=== PATIENT | female | born 1955 | race Caucasian/White ===

== ENCOUNTER → 2016-11-13 | Outpatient (CLI) | payer OTHER | END | disposition home or self-care (01) | LOC: LABWHC1 11:40 | PROVIDERS: ATTEND Internal Medicine | DX: Z53.9 Procedure and treatment not carried out, unspecified reason (principal) ==

== ENCOUNTER → 2016-11-14 | Outpatient (CLI) | payer OTHER ==
[2016-11-14 08:14] LABS: Basophils # (A) 0.1 k/uL (0-0.2); Basophils % (A) 2 %; CHCM 33.8; Eosinophils # (A) 0.2 k/uL (0-0.7); Eosinophils % (A) 4 %; HCT 42.1 % (34.0-46.0); HDW 2.44; HGB 14.3 gm/dL (11.4-16.0); Luc # (Auto) 0.14; Luc % (Auto) 3; Lymphocytes # (A) 2.2 k/uL (1.0-4.8); Lymphocytes % (A) 43 %; MCH 30.4 pg (25.0-35.0); MCV 89.3 fL (80.0-100.0); Mean Platelet Volume 7.6; Monocytes # (A) 0.3 k/uL (0-1.0); Monocytes % (A) 7 %; Neutrophils # (A) 2.1 k/uL (1.3-7.7); Neutrophils % (A) 42 %; RBC 4.71 m/uL (3.80-5.40); WBC 5.1 k/uL (3.8-10.6); WBC (Perox) 5.33
[2016-11-14 09:02] LABS: ALT 29 U/L (9-52); AST 26 U/L (14-36); Alkaline Phosphatase 65 U/L (38-126); Anion Gap 8 mmol/L; Blood Urea Nitrogen 11 mg/dL (7-17); Calcium 9.8 mg/dL (8.4-10.2); Carbon Dioxide 28 mmol/L (22-30); Chloride 105 mmol/L (98-107); Cholesterol 215 mg/dL (<200); Creatine Kinase 56 U/L (30-135); Glucose 95 mg/dL (74-99); HDL Cholesterol 96 mg/dL (40-60); Non-African American GFR(MDRD) 59 (>60 ml/min/1.73 sqM); Potassium 5.4 mmol/L (3.5-5.1); Sodium 141 mmol/L (137-145); Total Bilirubin 0.8 mg/dL (0.2-1.3); Triglycerides 76 mg/dL (<150)
[2016-11-14 09:48] LABS: Erythrocyte Sedimentation Rate 7 mm/hr (0-20)
[2016-11-14 10:39] LABS: C Reactive Protein <5.0 mg/L (<10.0)
== END | disposition home or self-care (01) ==
LOC: LABWHC1 07:50
PROVIDERS: ATTEND Internal Medicine
DX: E78.5 Hyperlipidemia, unspecified (principal); E55.9 Vitamin D deficiency, unspecified
CPT/HCPCS: 36415; 80053; 80061; 82306; 82550; 85025; 85652; 86140

== ENCOUNTER → 2016-11-28 | Outpatient (CLI) | payer OTHER | LOC: LABWHC1 08:18 | PROVIDERS: ATTEND Internal Medicine | DX: E87.5 Hyperkalemia (principal) | CPT/HCPCS: 36415; 84132 ==

== ENCOUNTER → 2017-11-30 | Outpatient (CLI) | payer OTHER ==
[2017-11-30 09:06] LABS: Basophils % (A) 1 %; Eosinophils # (A) 0.2 k/uL (0-0.7); Eosinophils % (A) 4 %; HCT 42.3 % (34.0-46.0); HGB 14.2 gm/dL (11.4-16.0); Lymphocytes # (A) 2.1 k/uL (1.0-4.8); Lymphocytes % (A) 44 %; MCH 29.5 pg (25.0-35.0); MCHC 33.6 g/dL (31.0-37.0); MCV 87.9 fL (80.0-100.0); Mean Platelet Volume 7.3; Monocytes # (A) 0.3 k/uL (0-1.0); Monocytes % (A) 7 %; Neutrophils % (A) 42 %; Platelet Count 254 k/uL (150-450); RBC 4.82 m/uL (3.80-5.40); WBC 4.8 k/uL (3.8-10.6)
[2017-11-30 09:07] LABS: ALT 20 U/L (9-52); AST 23 U/L (14-36); Albumin 4.1 g/dL (3.5-5.0); Alkaline Phosphatase 73 U/L (38-126); Anion Gap 8 mmol/L; Blood Urea Nitrogen 17 mg/dL (7-17); C Reactive Protein <5.0 mg/L (<10.0); Calcium 9.6 mg/dL (8.4-10.2); Carbon Dioxide 28 mmol/L (22-30); Chloride 105 mmol/L (98-107); Cholesterol 225 mg/dL (<200); Creatine Kinase 52 U/L (30-135); Glucose 97 mg/dL (74-99); HDL Cholesterol 93 mg/dL (40-60); LDL Cholesterol,Calculated 117 mg/dL (0-99); Magnesium 2.1 mg/dL (1.6-2.3); Sodium 141 mmol/L (137-145); Total Bilirubin 0.6 mg/dL (0.2-1.3); Total Protein 6.6 g/dL (6.3-8.2); Triglycerides 74 mg/dL (<150)
[2017-11-30 13:19] LABS: Erythrocyte Sedimentation Rate 8 mm/hr (0-20)
== END | disposition home or self-care (01) ==
LOC: LABWHC1 08:20
PROVIDERS: ATTEND Internal Medicine
DX: D64.9 Anemia, unspecified (principal); E87.8 Other disorders of electrolyte and fluid balance, not elsewhere classified; E78.5 Hyperlipidemia, unspecified; E55.9 Vitamin D deficiency, unspecified
CPT/HCPCS: 36415; 80053; 80061; 82306; 82550; 83735; 85025; 85652; 86140

== ENCOUNTER → 2018-06-07 | Outpatient (CLI) | payer OTHER ==
[2018-06-07 09:22] LABS: ALT 32 U/L (9-52); AST 33 U/L (14-36); C Reactive Protein <5.0 mg/L (<10.0); Cholesterol 218 mg/dL (<200); Creatine Kinase 55 U/L (30-135); HDL Cholesterol 95 mg/dL (40-60); LDL Cholesterol,Calculated 109 mg/dL (0-99); Triglycerides 71 mg/dL (<150)
== END | disposition home or self-care (01) ==
LOC: LABWHC1 08:29
PROVIDERS: ATTEND Internal Medicine
DX: E78.5 Hyperlipidemia, unspecified (principal)
CPT/HCPCS: 36415; 80061; 82550; 84450; 84460; 86140

== ENCOUNTER → 2018-12-01 | Outpatient (CLI) | payer MEDICARE, OTHER ==
[2018-12-01 10:04] LABS: Basophils % (A) 1 %; Eosinophils # (A) 0.2 k/uL (0-0.7); Eosinophils % (A) 4 %; HCT 42.1 % (34.0-46.0); HGB 13.3 gm/dL (11.4-16.0); Lymphocytes # (A) 1.6 k/uL (1.0-4.8); Lymphocytes % (A) 36 %; MCH 28.3 pg (25.0-35.0); MCHC 31.7 g/dL (31.0-37.0); MCV 89.4 fL (80.0-100.0); Mean Platelet Volume 7.3; Monocytes # (A) 0.3 k/uL (0-1.0); Monocytes % (A) 7 %; Neutrophils # (A) 2.2 k/uL (1.3-7.7); Neutrophils % (A) 50 %; Platelet Count 242 k/uL (150-450); RBC 4.71 m/uL (3.80-5.40); RDW 13.1 % (11.5-15.5); WBC 4.4 k/uL (3.8-10.6)
[2018-12-01 11:37] LABS: Erythrocyte Sedimentation Rate 7 mm/hr (0-20)
[2018-12-01 18:02] LABS: ALT 19 U/L (8-44); AST 28 U/L (13-35); Albumin/Globulin Ratio 2.39 (1.60-3.17); Alkaline Phosphatase 73 U/L (41-126); C Reactive Protein <0.4 mg/dL (0.0-0.8); Calcium 9.6 mg/dL (8.7-10.3); Chloride 106 mmol/L (96-109); Cholesterol 216 mg/dL (0-200); Creatine Kinase 66 U/L (26-186); Globulin 1.8 g/dL (1.6-3.3); Glucose 87 mg/dL (70-110); LDL Cholesterol,Calculated 105.8 mg/dL (0.0-131.0); Potassium 4.9 mmol/L (3.5-5.5); Sodium 140 mmol/L (135-145); Total Bilirubin 0.9 mg/dL (0.3-1.2); Total Protein 6.1 g/dL (6.2-8.2)
== END | disposition home or self-care (01) ==
LOC: LABWHC1 08:50
PROVIDERS: ATTEND Internal Medicine
DX: D64.9 Anemia, unspecified (principal); E78.5 Hyperlipidemia, unspecified; E55.9 Vitamin D deficiency, unspecified; M19.90 Unspecified osteoarthritis, unspecified site
CPT/HCPCS: 36415; 80053; 80061; 82550; 85025; 85652; 86140

== ENCOUNTER → 2019-02-14 | Outpatient (CLI) | payer MEDICARE, OTHER ==
--- NOTE | 2019-02-15 10:00 | MM ---
Reason for exam: screening (asymptomatic). Last mammogram was performed 15 years and 9 months ago. History: Patient is postmenopausal. Family history of breast cancer in sister at age 60. Physical Findings: A clinical breast exam by your physician is recommended on an annual basis and results should be correlated with mammographic findings. MG 3D Screening Mammo W/Cad Bilateral CC, MLO, and XCCL view(s) were taken. Prior study comparison: January 07, 2018, mammogram, performed at [facility]. December 08, 2016, mammogram, performed at [facility]. May 28, 2003, bilateral screening mammogram. The breast tissue is heterogeneously dense. This may lower the sensitivity of mammography. There is no discrete abnormality. No significant changes when compared with prior studies. ASSESSMENT: Negative, BI-RAD 1 RECOMMENDATION: Routine screening mammogram of both breasts in 1 year.
== END ==
LOC: RADMAMWWP 16:53
PROVIDERS: ATTEND Internal Medicine
DX: Z12.31 Encounter for screening mammogram for malignant neoplasm of breast (principal)
CPT/HCPCS: 77063; 77067

== ENCOUNTER → 2019-06-13 | Outpatient (CLI) | payer MEDICARE, OTHER ==
[2019-06-13 08:56] LABS: Basophils % (A) 1 %; Eosinophils # (A) 0.2 k/uL (0-0.7); Eosinophils % (A) 3 %; HCT 41.5 % (34.0-46.0); Lymphocytes # (A) 1.7 k/uL (1.0-4.8); Lymphocytes % (A) 36 %; MCH 29.6 pg (25.0-35.0); MCHC 33.6 g/dL (31.0-37.0); MCV 88.1 fL (80.0-100.0); Mean Platelet Volume 7.5; Monocytes # (A) 0.3 k/uL (0-1.0); Monocytes % (A) 7 %; Neutrophils # (A) 2.3 k/uL (1.3-7.7); Neutrophils % (A) 51 %; Platelet Count 245 k/uL (150-450); RBC 4.71 m/uL (3.80-5.40); RDW 14.7 % (11.5-15.5); WBC 4.6 k/uL (3.8-10.6)
[2019-06-13 10:33] LABS: Erythrocyte Sedimentation Rate 7 mm/hr (0-20)
[2019-06-13 16:57] LABS: ALT 20 U/L (8-44); AST 24 U/L (13-35); African American GFR (CKD) 68.5 (60.0-200.0); Albumin/Globulin Ratio 2.59 (1.60-3.17); Alkaline Phosphatase 76 U/L (41-126); C Reactive Protein <0.4 mg/dL (0.0-0.8); Calcium 9.7 mg/dL (8.7-10.3); Carbon Dioxide 27.4 mmol/L (21.6-31.8); Chloride 104 mmol/L (96-109); Chol/HDL Ratio 2.19; Cholesterol 219 mg/dL (0-200); Creatine Kinase 67 U/L (26-186); Globulin 1.7 g/dL (1.6-3.3); Glucose 87 mg/dL (70-110); Potassium 5.5 mmol/L (3.5-5.5); Sodium 139 mmol/L (135-145); Total Bilirubin 0.7 mg/dL (0.3-1.2); Total Protein 6.1 g/dL (6.2-8.2)
== END | disposition home or self-care (01) ==
LOC: LABWHC1 07:53
PROVIDERS: ATTEND Internal Medicine
DX: E78.5 Hyperlipidemia, unspecified (principal); D64.9 Anemia, unspecified; M81.0 Age-related osteoporosis without current pathological fracture; J06.9 Acute upper respiratory infection, unspecified
CPT/HCPCS: 36415; 80053; 80061; 82550; 85025; 85652; 86140

== ENCOUNTER → 2020-01-23 | Outpatient (CLI) | payer MEDICARE, OTHER ==
[2020-01-23 08:49] LABS: Basophils # (A) 0.1 k/uL (0-0.2); Basophils % (A) 2 %; Eosinophils # (A) 0.1 k/uL (0-0.7); Eosinophils % (A) 3 %; HCT 42.5 % (34.0-46.0); HGB 14.3 gm/dL (11.4-16.0); Lymphocytes # (A) 1.7 k/uL (1.0-4.8); Lymphocytes % (A) 36 %; MCH 30.9 pg (25.0-35.0); MCHC 33.6 g/dL (31.0-37.0); MCV 92.1 fL (80.0-100.0); Mean Platelet Volume 7.7; Monocytes # (A) 0.3 k/uL (0-1.0); Monocytes % (A) 7 %; Neutrophils # (A) 2.4 k/uL (1.3-7.7); Neutrophils % (A) 50 %; Platelet Count 222 k/uL (150-450); RBC 4.61 m/uL (3.80-5.40); RDW 12.8 % (11.5-15.5); WBC 4.7 k/uL (3.8-10.6)
[2020-01-23 10:06] LABS: Erythrocyte Sedimentation Rate 7 mm/hr (0-20)
[2020-01-23 16:10] LABS: Albumin 4.3 g/dL (3.80-4.90); Albumin/Globulin Ratio 2.53 (1.60-3.17); Calcium 9.5 mg/dL (8.7-10.3); Chol/HDL Ratio 2.23; Globulin 1.7 g/dL (1.6-3.3); LDL Cholesterol,Calculated 110.6 mg/dL (0.0-131.0); Non-African American GFR(CKD) 58.7 (60.0-200.0); Potassium 4.3 mmol/L (3.5-5.5); Total Bilirubin 0.7 mg/dL (0.2-1.2); VLDL Calculation 12.4 mg/dL (5.00-40.00)
== END | disposition home or self-care (01) ==
LOC: LABWHC1 08:20
PROVIDERS: ATTEND Internal Medicine
DX: Z00.00 Encounter for general adult medical examination without abnormal findings (principal); E78.5 Hyperlipidemia, unspecified; D63.1 Anemia in chronic kidney disease; N18.3 Chronic kidney disease, stage 3 (moderate)
CPT/HCPCS: 36415; 80053; 80061; 85025; 85652

== ENCOUNTER → 2020-04-29 | Outpatient (CLI) | payer MEDICARE, OTHER ==
--- NOTE | 2020-04-29 09:33 | CT ---
EXAMINATION TYPE: CT brain w con DATE OF EXAM: 04/29/2020 COMPARISON: CT brain February 23, 2012. HISTORY: dizziness, loss of balance CT DLP: 742.7 mGycm Automated exposure control for dose reduction was used. CONTRAST: CT scan of the head is performed with IV Contrast, patient injected with 80 mL of Isovue 300. FINDINGS: There is no abnormal enhancing mass or midline shift identified. The ventricles and sulci are within normal limits in size for patient's age. Hansen-white matter fairly well maintained. Stable asymmetri c prominence of the draining right internal jugular vein. No new opacification of the mastoid air inga ls. The globes are intact and the visualized sinuses are clear. IMPRESSION: Source of dizziness and loss of balance not identified. No significant change from 2011 C T.
== END | disposition home or self-care (01) ==
LOC: RADCTMAIN 06:59
PROVIDERS: ATTEND Internal Medicine
DX: R26.9 Unspecified abnormalities of gait and mobility (principal); Z88.2 Allergy status to sulfonamides; Z88.8 Allergy status to other drugs, medicaments and biological substances
CPT/HCPCS: 82565; 84520; 70460; 36415; Q9967

== ENCOUNTER → 2020-06-20 | Outpatient (CLI) | payer MEDICARE, OTHER | END | disposition home or self-care (01) | LOC: RADMRIMAIN 10:29 | PROVIDERS: ATTEND Psychiatry & Neurology Neurology | DX: Z53.9 Procedure and treatment not carried out, unspecified reason (principal) ==

== ENCOUNTER → 2020-07-03 | Outpatient (CLI) | payer MEDICARE, OTHER ==
[2020-07-03 18:54] LABS: DNA Double-Stranded NEGATIVE (NEGATIVE)
[2020-07-03 19:36] LABS: African American GFR (CKD) 77.2 (60.0-200.0); Non-African American GFR(CKD) 66.6 (60.0-200.0); Rheumatoid Factor, Qnt 6 IU/mL (0-15)
[2020-07-03 19:38] LABS: Folate, Serum 17.4 ng/mL
== END | disposition home or self-care (01) ==
LOC: LABWHC1 07:42
PROVIDERS: ATTEND Psychiatry & Neurology Neurology
DX: R42 Dizziness and giddiness (principal)
CPT/HCPCS: 36415; 82565; 82607; 82746; 84520; 86038; 86225; 86431; 86618

== ENCOUNTER → 2020-07-08 | Outpatient (CLI) | payer MEDICARE, OTHER ==
--- NOTE | 2020-07-08 19:57 | MR ---
EXAMINATION TYPE: MR brain wo/w con DATE OF EXAM: 07/08/2020 COMPARISON: CT brain April 29, 2020 HISTORY: Dizziness, Loss of Balance, acoustic neuroma, tumor TECHNIQUE: Multiplanar, multisequence images of the brain and brainstem is performed without and with IV contras t, utilizing 5.5 mL intravenous Gadavist . Acoustic nerve disorder protocol.3 FINDINGS: Diffusion weighted images demonstrate no evidence of a recent infarct or other diffusion ab normality. There is no recent extra-axial fluid collection. Stable mild ventricular and sulcal promi nence. Scattered tiny foci of T2 hyperintensity seen throughout the white matter bilaterally. Approxi mately 20-30 lesions are present. Midline structures demonstrate normal morphology. The craniocervical junction appears within normal limits. Post contrast images demonstrate no abnormal enhancement. The dural venous sinuses appear pa tent. The visualized sinuses are clear and the globes are intact. No suspicious opacification mastoid air cells bilaterally. Vestibulocochlear complexes are symmetric and felt within normal limits. There is no suspicious enhancing cerebellopontine angle mass identifie d bilaterally. IMPRESSION: 1. No suspicious findings seen to account for patient's symptoms of dizziness and balance loss. No en hancing mass to suggest acoustic neuroma. 2. Mild diffuse age-related cerebral atrophy and mild to moderate chronic small vessel ischemic beltre es noted.
== END | disposition home or self-care (01) ==
LOC: RADMRIMAIN 17:27
PROVIDERS: ATTEND Psychiatry & Neurology Neurology
DX: I67.82 Cerebral ischemia (principal); G31.1 Senile degeneration of brain, not elsewhere classified; C71.0 Malignant neoplasm of cerebrum, except lobes and ventricles
CPT/HCPCS: 70553; A9585

== ENCOUNTER → 2021-01-10 | Outpatient (CLI) | payer MEDICARE, OTHER ==
[2021-01-10 15:27] LABS: Basophils # (A) 0.04 X 10*3/uL (0.00-0.10); Basophils % (A) 0.9 %; Eosinophils # (A) 0.15 X 10*3/uL (0.04-0.35); Eosinophils % (A) 3.2 %; HCT 39.6 % (37.2-46.3); HGB 13.1 g/dL (12.0-15.0); Lymphocytes % (A) 36.4 %; MCHC 33.1 g/dL (32.0-37.0); MCV 90.8 fL (80.0-97.0); Mean Platelet Volume 10.8 fL (9.5-12.2); Monocytes # (A) 0.49 X 10*3/uL (0.20-1.00); Monocytes % (A) 10.5 %; Neutrophils # (A) 2.28 X 10*3/uL (1.80-7.70); Neutrophils % (A) 48.8 %; Platelet Count 266 X 10*3/uL (140-440); RBC 4.36 X 10*6/uL (4.10-5.20); RDW 12.6 % (11.5-14.5); WBC 4.67 X 10*3/uL (4.50-10.00)
[2021-01-10 17:23] LABS: Erythrocyte Sedimentation Rate 7 mm/Hr (0-30)
[2021-01-11 01:50] LABS: ALT 26 U/L (8-44); AST 28 U/L (13-35); African American GFR (CKD) 67.5 (60.0-200.0); Albumin/Globulin Ratio 2.88 (1.60-3.17); Alkaline Phosphatase 79 U/L (41-126); C Reactive Protein <0.4 mg/dL (0.0-0.8); Calcium 9.9 mg/dL (8.7-10.3); Carbon Dioxide 22.5 mmol/L (21.6-31.8); Chloride 106 mmol/L (96-109); Chol/HDL Ratio 2.29; Cholesterol 218 mg/dL (0-200); Creatine Kinase 66 U/L (26-186); Globulin 1.6 g/dL (1.6-3.3); Glucose 150 mg/dL (70-110); LDL Cholesterol,Calculated 109.2 mg/dL (0.0-131.0); Non-African American GFR(CKD) 58.2 (60.0-200.0); Potassium 4.2 mmol/L (3.5-5.5); Sodium 141 mmol/L (135-145); Total Bilirubin 0.8 mg/dL (0.3-1.2); Total Protein 6.2 g/dL (6.2-8.2)
== END | disposition home or self-care (01) ==
LOC: LABWHC1 09:23
PROVIDERS: ATTEND Internal Medicine
DX: E78.5 Hyperlipidemia, unspecified (principal); I12.9 Hypertensive chronic kidney disease with stage 1 through stage 4 chronic kidney disease, or unspecified chronic kidney disease; N18.30 Chronic kidney disease, stage 3 unspecified; D64.9 Anemia, unspecified
CPT/HCPCS: 36415; 80053; 80061; 82550; 85025; 85652; 86140

== ENCOUNTER → 2021-03-04 | Outpatient (CLI) | payer MEDICARE, OTHER ==
--- NOTE | 2021-03-06 08:43 | MM ---
Reason for exam: screening (asymptomatic). Last mammogram was performed 2 years and 1 month ago. History: Patient is postmenopausal. Family history of breast cancer in sister at age 60. Physical Findings: A clinical breast exam by your physician is recommended on an annual basis and results should be correlated with mammographic findings. MG Screening Mammo w CAD Bilateral CC and MLO view(s) were taken. Prior study comparison: February 14, 2019, bilateral MG 3d screening mammo w/cad. January 07, 2018, mammogram, performed at [facility]. The breast tissue is heterogeneously dense. This may lower the sensitivity of mammography. There is no discrete abnormality. ASSESSMENT: Negative, BI-RAD 1 RECOMMENDATION: Routine screening mammogram of both breasts in 1 year.
== END | disposition home or self-care (01) ==
LOC: RADMAMWWP 08:09
PROVIDERS: ATTEND Internal Medicine
DX: Z12.31 Encounter for screening mammogram for malignant neoplasm of breast (principal); Z78.0 Asymptomatic menopausal state; Z80.3 Family history of malignant neoplasm of breast
CPT/HCPCS: 77067

== ENCOUNTER → 2021-03-10 | Outpatient (CLI) | payer MEDICARE, OTHER ==
[2021-03-10 12:40] LABS: African American GFR (CKD) 67.5 (60.0-200.0); Anion Gap 7.6 mmol/L (4.00-12.00); Calcium 9.3 mg/dL (8.7-10.3); Carbon Dioxide 28.4 mmol/L (21.6-31.8); Non-African American GFR(CKD) 58.2 (60.0-200.0); Potassium 4.1 mmol/L (3.5-5.5)
[2021-03-10 17:16] LABS: Hemoglobin A1C 5.1 % (4.0-6.0)
== END | disposition home or self-care (01) ==
LOC: LABWHC1 08:05
PROVIDERS: ATTEND Internal Medicine
DX: E11.22 Type 2 diabetes mellitus with diabetic chronic kidney disease (principal); N18.30 Chronic kidney disease, stage 3 unspecified; E11.65 Type 2 diabetes mellitus with hyperglycemia
CPT/HCPCS: 36415; 80048; 83036

== ENCOUNTER → 2022-02-02 | Outpatient (CLI) | payer MEDICARE, OTHER ==
--- NOTE | 2022-02-03 06:07 | MR ---
EXAMINATION TYPE: MR iac wo/w con DATE OF EXAM: 02/02/2022 COMPARISON: 07/08/2020 HISTORY: Vertigo, right sided hearing loss. CONTRAST: Standard multiplanar, multisequence MRI departmental protocol images were obtained without contrast a nd with 6 mL intravenous Gadavist gadolinium contrast. Diffusion images show no evidence of acute infarct. Ventricles have fairly normal size. There is no m ass effect or midline shift. No sign of intracranial hemorrhage. There is multiple foci of increased signal in the valadez-white matter junction both cerebral hemispheres that measure up to 6 mm. Total num rose is less than 20. Most of the lesions are less than 4 mm. The sella turcica appears normal. Corpus callosum is intact. There is a single 4 mm focus of increased signal in the marko on the right side o n the FLAIR images. The cerebellum is intact. The internal auditory canals appear normal. No evidence of cerebellopontine angle mass. The contrast images show no pathologic enhancement. There is normal enhancement of the venous sinuses . The remainder of the exam is unremarkable. IMPRESSION: There are white matter signal changes consistent with microvascular ischemia or demyelinating disease which overall are not significantly different than old exam. No focal abnormality of the temporal bethanie mikal and internal auditory canals.
== END | disposition home or self-care (01) ==
LOC: RADMRIMAIN 11:21
PROVIDERS: ATTEND Otolaryngology
DX: H91.91 Unspecified hearing loss, right ear (principal)
CPT/HCPCS: 70553; A9585

== ENCOUNTER → 2022-06-17 | Outpatient (CLI) | payer MEDICARE, OTHER ==
[2022-06-17 14:43] LABS: Basophils # (A) 0.02 X 10*3/uL (0.00-0.10); Basophils % (A) 0.4 %; Eosinophils # (A) 0.17 X 10*3/uL (0.04-0.35); Eosinophils % (A) 3.4 %; HCT 40.7 % (37.2-46.3); HGB 13.7 g/dL (12.0-15.0); Immature Grans, Automated 0.2 %; Lymphocytes # (A) 1.99 X 10*3/uL (0.90-5.00); MCH 30.7 pg (27.0-32.0); MCHC 33.7 g/dL (32.0-37.0); MCV 91.3 fL (80.0-97.0); Mean Platelet Volume 11.5 fL (9.5-12.2); Monocytes % (A) 10.1 %; NRBC Per 100 WBC 0 /100 WBCS (0.0-0.0); Neutrophils # (A) 2.28 X 10*3/uL (1.80-7.70); Neutrophils % (A) 45.9 %; Platelet Count 236 X 10*3/uL (140-440); RBC 4.46 X 10*6/uL (4.10-5.20); RDW 12.8 % (11.5-14.5); WBC 4.97 X 10*3/uL (4.50-10.00)
[2022-06-17 14:55] LABS: ALT 20 U/L (8-44); AST 25 U/L (13-35); African American GFR (CKD) 64.7 (60.0-200.0); Albumin 4.2 g/dL (3.8-4.9); Albumin/Globulin Ratio 1.92 (1.60-3.17); Alkaline Phosphatase 79 U/L (41-126); BUN/Creat Ratio 12.82 Ratio (12.00-20.00); Blood Urea Nitrogen 13.2 mg/dL (9.0-27.0); C Reactive Protein <0.30 mg/dL (0.00-0.80); Calcium 9.3 mg/dL (8.7-10.3); Carbon Dioxide 24.5 mmol/L (20.0-27.5); Chloride 102 mmol/L (96-109); Creatine Kinase 56 U/L (26-186); Globulin 2.2 g/dL (1.6-3.3); Glucose 94 mg/dL (70-110); Magnesium 2.1 mg/dL (1.5-2.4); Non-African American GFR(CKD) 55.8 (60.0-200.0); Phosphorus 3.3 mg/dL (2.4-5.1); Sodium 136 mmol/L (135-145); Total Protein 6.4 g/dL (6.2-8.2)
[2022-06-17 15:40] LABS: Erythrocyte Sedimentation Rate 4 mm/Hr (0-30)
[2022-06-17 22:30] LABS: LDL Cholesterol,Calculated 109.9 mg/dL (0.0-131.0)
== END | disposition home or self-care (01) ==
LOC: LABWHC1 09:11
PROVIDERS: ATTEND Internal Medicine
DX: Z00.00 Encounter for general adult medical examination without abnormal findings (principal); I12.9 Hypertensive chronic kidney disease with stage 1 through stage 4 chronic kidney disease, or unspecified chronic kidney disease; E87.8 Other disorders of electrolyte and fluid balance, not elsewhere classified; E78.5 Hyperlipidemia, unspecified; D63.1 Anemia in chronic kidney disease; N18.30 Chronic kidney disease, stage 3 unspecified
CPT/HCPCS: 36415; 80053; 80061; 82306; 82550; 83735; 84100; 84443; 85025; 85652; 86140

== ENCOUNTER → 2023-06-25 | Outpatient (CLI) | payer MEDICARE, OTHER | END | disposition home or self-care (01) | LOC: LABPRL 09:37 | PROVIDERS: ATTEND Internal Medicine | DX: Z00.00 Encounter for general adult medical examination without abnormal findings (principal) | CPT/HCPCS: 82272 ==

== ENCOUNTER → 2023-08-03 | Outpatient (CLI) | payer MEDICARE, OTHER ==
--- NOTE | 2023-08-04 18:46 | MM ---
Reason for Exam: Screening (asymptomatic). Last mammogram was performed 2 year(s) and 5 month(s) ago. Patient History: Menarche at age 11. First Full-Term at age 17. Postmenopausal. Sister had breast cancer, age 60. Risk Values: Naomy 5 year model risk: 3.2%. NCI Lifetime model risk: 9.2%. Prior Study Comparison: 01/07/2018 Screening Mammogram, [facility]. 02/14/2019 Bilateral Screening Mammogram, [facility]. 03/04/2021 Bilateral Screening Mammogram, [facility]. Tissue Density: The breast tissue is heterogeneously dense. This may lower the sensitivity of mammography. Findings: Analyzed By CAD. Pattern appears symmetrical and stable. No significant interval change. No suspicious groups of microcalcifications, spiculated or lobular masses, architectural distortion or other secondary signs of malignancy are mammographically apparent. Overall Assessment: Benign, BI-RAD 2 Management: Screening Mammogram of both breasts in 1 year. A negative mammogram report should not preclude additional follow up of suspicious palpable abnormalities. Patient should continue monthly self breast exam. A clinical breast exam by your physician is recommended on an annual basis and results should be correlated with mammographic findings. Electronically signed and approved by: Brandyn Shankar D.O. Radiologis
== END | disposition home or self-care (01) ==
LOC: RADMAMWWP 07:57
PROVIDERS: ATTEND Internal Medicine
DX: Z12.31 Encounter for screening mammogram for malignant neoplasm of breast (principal); Z78.0 Asymptomatic menopausal state; Z80.3 Family history of malignant neoplasm of breast
CPT/HCPCS: 77063; 77067

== ENCOUNTER → 2024-06-30 | Outpatient (CLI) | payer MEDICARE, BC ==
[2024-06-30 15:04] LABS: Basophils # (A) 0.03 X 10*3/uL (0.00-0.10); Basophils % (A) 0.6 %; Eosinophils # (A) 0.23 X 10*3/uL (0.04-0.35); Eosinophils % (A) 4.3 %; HCT 42.4 % (37.2-46.3); HGB 13.9 g/dL (12.0-15.0); Lymphocytes # (A) 2.02 X 10*3/uL (0.90-5.00); Lymphocytes % (A) 38.1 %; MCH 30.1 pg (27.0-32.0); MCHC 32.8 g/dL (32.0-37.0); MCV 91.8 FL (80.0-97.0); Mean Platelet Volume 11.2 FL (9.5-12.2); Monocytes # (A) 0.62 X 10*3/uL (0.20-1.00); Monocytes % (A) 11.7 %; NRBC Per 100 WBC 0 X 10*3/uL (0.00-0.01); Neutrophils # (A) 2.38 X 10*3/uL (1.80-7.70); Neutrophils % (A) 44.9 %; Platelet Count 224 X 10*3/uL (140-440); RBC 4.62 X 10*6/uL (4.10-5.20); RDW 13.1 % (11.5-14.5)
[2024-06-30 15:43] LABS: ALT 27 U/L (8-44); AST 26 U/L (13-35); Albumin 4.3 g/dL (3.8-4.9); Albumin/Globulin Ratio 2.05 Ratio (1.60-3.17); Alkaline Phosphatase 90 U/L (41-126); BUN/Creat Ratio 15.64 Ratio (12.00-20.00); Blood Urea Nitrogen 17.2 mg/dL (9.0-27.0); C Reactive Protein <0.30 mg/dL (0.00-0.80); Calcium 9.5 mg/dL (8.7-10.3); Carbon Dioxide 26.2 mmol/L (21.6-31.8); Chloride 105 mmol/L (96-109); Creatine Kinase 58 U/L (26-186); Globulin 2.1 g/dL (1.6-3.3); Glucose 93 mg/dL (70-110); LDL Cholesterol,Calculated 121.7 mg/dL (0.0-131.0); Phosphorus 3.7 mg/dL (2.4-5.1); Potassium 4.4 mmol/L (3.5-5.5); Sodium 140 mmol/L (135-145); Total Bilirubin 0.6 mg/dL (0.3-1.2); Total Protein 6.4 g/dL (6.2-8.2)
[2024-06-30 17:01] LABS: Erythrocyte Sedimentation Rate 11 mm/Hr (0-30)
== END | disposition home or self-care (01) ==
LOC: LABWHC1 08:44
PROVIDERS: ATTEND Internal Medicine
CPT/HCPCS: 36415; 80053; 80061; 82306; 82550; 83735; 84100; 84443; 85025; 85652; 86140

== ENCOUNTER → 2024-07-21 | Outpatient (CLI) | payer MEDICARE ==
[2024-07-21 11:14] LABS: Creatinine,Urine Random 108.6 mg/dL
[2024-07-21 15:26] LABS: Appearance,Urine Clear (Clear); Bilirubin,Urine Negative (Negative); Blood,Urine Negative (Negative); Color,Urine Yellow (Yellow); Ketones,Urine Negative (Negative); Nitrite,Urine Negative (Negative); PH, Urine 5.5; Specific Gravity,Urine 1.016 (1.001-1.030); Urobilinogen,Urine 0.2 E.U./DL
[2024-07-21 15:35] LABS: Bacteria,Urine None Seen (None Seen)
[2024-07-21 17:18] LABS: Microalbumin Creatinine Ratio <10 mg/g Cr (0-30)
== END | disposition home or self-care (01) ==
LOC: LABWHC1 10:02
PROVIDERS: ATTEND Internal Medicine
DX: E87.8 Other disorders of electrolyte and fluid balance, not elsewhere classified (principal); M10.9 Gout, unspecified; R31.9 Hematuria, unspecified; R80.9 Proteinuria, unspecified
CPT/HCPCS: 36415; 81001; 82043; 82570; 84156; 84550

== ENCOUNTER → 2024-07-21 | Outpatient (CLI) | payer MEDICARE ==
--- NOTE | 2024-07-21 11:41 | US ---
EXAMINATION TYPE: US kidneys/renal and bladder DATE OF EXAM: 07/21/2024 COMPARISON: NONE CLINICAL INDICATION: Female, 69 years old with history of N18.31 CHRONIC KIDNEY DISEASE, STAGE 3A; CK D TECHNIQUE: Grayscale and color Doppler imaging of the bilateral kidneys and urinary bladder: FINDINGS: EXAM MEASUREMENTS: Right Kidney: 8.5 x 4.3 x 3.4 cm Left Kidney: 9.0 x 3.9 x 4.1 cm Right Kidney: No hydronephrosis or masses seen, lower pole limited due to bowel gas, , cortical medul joann differentiation maintained. Left Kidney: No hydronephrosis or masses seen , cortical medullary differentiation maintained. Bladder: wnl Bilateral Jets seen: yes There is no evidence for hydronephrosis at this point in time. No nephrolithiasis is seen. No maeve s are identified. The urinary bladder is anechoic. IMPRESSION: No evidence for obstructive uropathy. [facility], , 07/21/2024 11:39 AM
== END | disposition home or self-care (01) ==
LOC: RADUSWWP 09:41
PROVIDERS: ATTEND Internal Medicine
DX: N18.31 Chronic kidney disease, stage 3a (principal); E87.8 Other disorders of electrolyte and fluid balance, not elsewhere classified; M10.00 Idiopathic gout, unspecified site; R31.0 Gross hematuria; R80.9 Proteinuria, unspecified
CPT/HCPCS: 76770

== ENCOUNTER → 2024-07-27 | Outpatient (CLI) | payer MEDICARE ==
[2024-07-27 16:02] LABS: Appearance,Urine Clear (Clear); Bilirubin,Urine Negative (Negative); Blood,Urine Negative (Negative); Color,Urine Yellow (Yellow); Ketones,Urine Negative (Negative); Nitrite,Urine Negative (Negative); Specific Gravity,Urine 1.019 (1.001-1.030); Urobilinogen,Urine 0.2 E.U./DL
[2024-07-27 16:09] LABS: Bacteria,Urine None Seen (None Seen)
== END | disposition home or self-care (01) ==
LOC: LABWHC1 10:37
PROVIDERS: ATTEND Internal Medicine
DX: N39.0 Urinary tract infection, site not specified (principal)
CPT/HCPCS: 81001; 87086

== ENCOUNTER → 2024-09-22 | Outpatient (CLI) | payer MEDICARE ==
--- NOTE | 2024-09-25 07:40 | MM ---
Reason for Exam: Screening (asymptomatic). Last mammogram was performed 1 year(s) and 2 month(s) ago. Patient History: Menarche at age 11. First Full-Term at age 17. Postmenopausal. Sister had breast cancer, age 60. Risk Values: Naomy 5 year model risk: 3.2%. NCI Lifetime model risk: 8.8%. Prior Study Comparison: 02/14/2019 Bilateral Screening Mammogram, [facility]. 03/04/2021 Bilateral Screening Mammogram, [facility]. 08/03/2023 Bilateral MG 3D screening mammo w/cad, [facility]. Tissue Density: The breasts are heterogeneously dense, which may obscure small masses. Findings: Analyzed By CAD. Right breast: There is no suspicious group of microcalcifications or new suspicious mass. Left breast: There is no suspicious group of microcalcifications or new suspicious mass. Overall Assessment: Negative, BI-RAD 1 Management: Screening Mammogram of both breasts in [address] [facility] will attempt to contact patient to return for supplemental views and ultrasound if indicated. Patient should continue monthly self-breast exams. A clinical breast exam by your physician is recommended on an annual basis. This exam should not preclude additional follow-up of suspicious palpable abnormalities. Note on Naomy scores and lifetime risk: 1. A Noamy score greater than 3% is considered moderate risk. If this is the case, consider specialist referral to assess eligibility for a risk reducing agent. 2. If overall lifetime risk for the development of breast cancer is 20% or higher, the patient may qualify for future screening with alternating mammogram and breast MRI. [facility], , 09/25/2024 7:37 AM. Electronically signed and approved by: Yakov Moralez DO
== END | disposition home or self-care (01) ==
LOC: RADMAMWWP 16:29
PROVIDERS: ATTEND Internal Medicine
DX: Z12.31 Encounter for screening mammogram for malignant neoplasm of breast (principal); Z78.0 Asymptomatic menopausal state; Z80.3 Family history of malignant neoplasm of breast; R92.333 Mammographic heterogeneous density, bilateral breasts
CPT/HCPCS: 77063; 77067

== ENCOUNTER → 2024-11-03 | Outpatient (CLI) | payer MEDICARE ==
[2024-11-03 16:45] LABS: ALT 23 U/L (8-44); AST 26 U/L (13-35)
== END | disposition home or self-care (01) ==
LOC: LABWHC1 08:48
PROVIDERS: ATTEND Internal Medicine
DX: I10 Essential (primary) hypertension (principal); E78.5 Hyperlipidemia, unspecified
CPT/HCPCS: 36415; 83721; 84450; 84460